=== PATIENT | male | born 1965 | race Caucasian/White ===

== ENCOUNTER 2019-05-08 12:28 | Emergency (ER) | payer BC ==
[~2019-05-08] VITALS: Ht 185.4 cm; Wt 117.9 kg
[2019-05-08] MEDS ORDERED: FLEXERIL PO (12:45)
[2019-05-08] MEDS ORDERED: NAPROSYN500 MG PO (12:45)
[2019-05-08] MEDS ORDERED: LISINOPRIL2.5 MG PO (12:46)
[2019-05-08] MEDS ORDERED: ADCIRCA20 MG PO (12:47)
[2019-05-08] MEDS ORDERED: MELOXICAM7.5 MG PO (14:48)
[2019-05-08] MEDS ORDERED: MEDROLDOSEPACK PO (14:48)
[2019-05-08] MEDS ORDERED: NORCO 5-325 TA1 EAC1 PO (14:48)
[2019-05-08 15:26] VITALS: BP 163/89
== END 2019-05-08 15:29 | disposition home or self-care (01) ==
LOC: M.ERS 12:28
DX: M51.36 Other intervertebral disc degeneration, lumbar region (principal); M46.96 Unspecified inflammatory spondylopathy, lumbar region; M19.90 Unspecified osteoarthritis, unspecified site; I10 Essential (primary) hypertension; F17.200 Nicotine dependence, unspecified, uncomplicated